=== PATIENT | female | born 1955 | race Caucasian/White ===

== ENCOUNTER 2017-04-16 09:07 | Emergency (ER) | payer BC, OTHER ==
[2017-04-16] MEDS ORDERED: Ketorolac Tromethamine 30 MG/ML VIAL ONE (09:53)
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
== END 2017-04-16 11:25 | disposition home or self-care (01) ==
LOC: ERS 09:07
DX: M79.1 Myalgia (principal); I10 Essential (primary) hypertension; E11.9 Type 2 diabetes mellitus without complications; E03.9 Hypothyroidism, unspecified; E78.5 Hyperlipidemia, unspecified; F41.9 Anxiety disorder, unspecified; F32.9 Major depressive disorder, single episode, unspecified; Z87.891 Personal history of nicotine dependence; Z79.84 Long term (current) use of oral hypoglycemic drugs; Z79.899 Other long term (current) drug therapy; V43.52XA Car driver injured in collision with other type car in traffic accident, initial encounter; W22.11XA Striking against or struck by driver side automobile airbag, initial encounter
CPT/HCPCS: 72125; 72131; 96372; J1885

== ENCOUNTER 2018-12-31 07:50 | Emergency (ER) | payer MEDICARE, BC ==
[2018-12-31] MEDS ORDERED: Ketorolac Tromethamine 30 MG/ML VIAL ONE (08:19)
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
== END 2018-12-31 08:55 | disposition home or self-care (01) ==
LOC: ERS 07:50
DX: S52.501A Unspecified fracture of the lower end of right radius, initial encounter for closed fracture (principal); S05.11XA Contusion of eyeball and orbital tissues, right eye, initial encounter; S60.417A Abrasion of left little finger, initial encounter; M25.562 Pain in left knee; M25.561 Pain in right knee; E11.9 Type 2 diabetes mellitus without complications; E03.9 Hypothyroidism, unspecified; E78.5 Hyperlipidemia, unspecified; E78.00 Pure hypercholesterolemia, unspecified; F32.9 Major depressive disorder, single episode, unspecified; F41.9 Anxiety disorder, unspecified; I10 Essential (primary) hypertension; Z87.891 Personal history of nicotine dependence; Z79.84 Long term (current) use of oral hypoglycemic drugs; Z79.899 Other long term (current) drug therapy; W17.89XA Other fall from one level to another, initial encounter
CPT/HCPCS: 25605; 96372; J1885

== ENCOUNTER 2019-01-06 06:05 | Day surgery (SDC) | payer MEDICARE, BC ==
[2019-01-05 14:17] VITALS: BMI 52.2
[2019-01-06] MEDS ORDERED: Fentanyl 100 MCG/2 ML VIAL ONE ×2 (06:20→06:40)
[2019-01-06] MEDS ORDERED: Midazolam HCl 2 mg/2 ml Vial ONE (06:40)
[2019-01-06 07:57] LABS: Anion Gap 13 mmol/L (10-20); BUN (Urea Nitrogen) 19 mg/dL (9.8-20.1); Calc. Creatinine Clearance 133 mL/min (70-130); Calcium 9.6 mg/dL (7.8-10.44); Carbon Dioxide 23 mmol/L (23-31); Chloride 104 mmol/L (98-107); Estimated GFR-MDRD 64; Glucose 124 mg/dL (80-115); Potassium 3.9 mmol/L (3.5-5.1); Sodium 136 mmol/L (136-145)
--- NOTE | 2019-01-06 14:38 | RAD ---
EXAM: 2 views right wrist PROVIDED CLINICAL HISTORY: ORIF COMPARISON: 12/31/2018 FINDINGS: Spot fluoroscopic frontal and lateral views of the right wrist demonstrate volar plate and screw fixa tion of previously described distal radial fracture with subsequent improved alignment. IMPRESSION: As above.
--- NOTE | 2019-01-08 11:03 | OP ---
DATE OF PROCEDURE: 01/06/2019 PREOPERATIVE DIAGNOSIS: Right extra-articular distal radius fracture (two fragments). POSTOPERATIVE DIAGNOSIS: Right extra-articular distal radius fracture (two fragments). PROCEDURE PERFORMED: Open reduction and internal fixation, right distal radius. ANESTHESIA: General. TOURNIQUET TIME: 36 minutes at 250 mmHg. IMPLANTS: Synthes 2.4 mm variable angle LCP two-column plate with a combination of 2.7 mm cortical screws and 2.4 mm locking screws. BODY AND FRAME TECHNICIAN: Chet Francois PA-C COMPLICATIONS: None. DRAINS: None. SPECIMEN: None. INDICATIONS: Ms. Rodriguez is a pleasant 63-year-old lady, status post fall sustaining a displaced distal radius fracture. After discussion with the patient including risks and benefits, we decided to proceed with open reduction and internal fixation to restore more normal anatomy and improve healing potential. Informed consent has been obtained. I believe all questions answered. DESCRIPTION OF PROCEDURE: The patient was brought to the operating room and a time-out performed followed by introduction of general anesthesia. Next, a sterile prep and drape was performed of the right upper extremity. The limb was exsanguinated with Esmarch bandage, tourniquet inflated to 250 mmHg. A volar radial skin incision was made after skin was sharply incised. Dissection was carried down to the interval between the flexor carpi radialis and the brachioradialis, taking care to identify the neurovascular bundle and reflected radially. The pronator quadratus was then reflected off the radial border of the distal radius and reflected towards the midline revealing the underlying distal radial shaft and the fracture. The fracture was reduced under direct visualization and confirmed with C-arm imaging. Once reduced, a plate was applied to the volar cortex of the distal radius and then held in place with a single 2.7 mm cortical screw in the longitudinal limb of the plate. Next, the plate was adjusted on the bone under C-arm guidance, and then, a total of four 2.4 mm locking screws were placed through the horizontal limb of the plate capturing the distal fragment. With completion of this, two more cortical screws were placed in the longitudinal limb of the plate. Final AP and lateral C-arm images were then obtained that showed near-anatomic alignment of the fracture with scientology of radial length, radial inclination, and volar tilt of neutral. The wound was then irrigated with normal saline and closed in layers with 0 Vicryl deep, followed by 2-0 Vicryl, and nylon for the skin. Xeroform gauze, Webril, and fiberglass splint were applied to the arm. Tourniquet was let down at the completion of dressing, and the patient was transferred to recovery room in stable condition. There were no complications. She tolerated the procedure well. Job ID: [id number]
== END 2019-01-06 11:05 | disposition home or self-care (01) ==
LOC: SDC 06:05 → EEVIPCON 06:05 → SDC 11:05
PROVIDERS: ATTEND Orthopaedic Surgery
PROC: 0PSH04Z Reposition Right Radius with Internal Fixation Device, Open Approach (ICD-10-PCS; principal; 2019-01-06)
PROC: 3E0T3BZ Introduction of Anesthetic Agent into Peripheral Nerves and Plexi, Percutaneous Approach (ICD-10-PCS; 2019-01-06)
DX: S52.531A Colles' fracture of right radius, initial encounter for closed fracture (principal); S52.614A Nondisplaced fracture of right ulna styloid process, initial encounter for closed fracture; I10 Essential (primary) hypertension; E11.9 Type 2 diabetes mellitus without complications; G89.18 Other acute postprocedural pain; Z79.82 Long term (current) use of aspirin; Z79.84 Long term (current) use of oral hypoglycemic drugs; Z79.899 Other long term (current) drug therapy; Z87.891 Personal history of nicotine dependence; W01.0XXA Fall on same level from slipping, tripping and stumbling without subsequent striking against object, initial encounter
CPT/HCPCS: 25607; 64415; 73110; 76000; 80048; 93005; C1713 ×2; 36415; 93010; J0690; J2250; J3010

== ENCOUNTER 2022-06-11 10:37 | Day surgery (SDC) | payer MEDICARE, BC ==
[2022-06-10 11:28] VITALS: BMI 47.9
[2022-06-11] MEDS ORDERED: Lidocaine 1% PF 5 ML VIAL ONE (12:00)
[2022-06-11] MEDS ORDERED: PROPOFOL 200 MG/20 ML VIAL ONE (12:00)
== END 2022-06-11 13:51 | disposition home or self-care (01) ==
LOC: SDC 10:37
PROVIDERS: ATTEND Internal Medicine Gastroenterology
PROC: 0DJD8ZZ Inspection of Lower Intestinal Tract, Via Natural or Artificial Opening Endoscopic (ICD-10-PCS; principal; 2022-06-11)
DX: Z12.11 Encounter for screening for malignant neoplasm of colon (principal); K64.8 Other hemorrhoids; Q43.8 Other specified congenital malformations of intestine; E11.9 Type 2 diabetes mellitus without complications; E07.9 Disorder of thyroid, unspecified; I10 Essential (primary) hypertension; G47.30 Sleep apnea, unspecified; E66.01 Morbid (severe) obesity due to excess calories; Z68.42 Body mass index [BMI] 45.0-49.9, adult; Z87.891 Personal history of nicotine dependence; Z79.1 Long term (current) use of non-steroidal anti-inflammatories (NSAID); Z79.82 Long term (current) use of aspirin; Z79.84 Long term (current) use of oral hypoglycemic drugs; Z79.890 Hormone replacement therapy; Z79.899 Other long term (current) drug therapy
CPT/HCPCS: J2704